=== PATIENT | male | born 1995 | race American Indian/Alaskan Native ===

== ENCOUNTER 2016-11-10 12:29 | Emergency (ER) | payer SELFPAY ==
[2016-11-10 12:37] VITALS: BP 112/64
[2016-11-10 15:04] LABS: Bilirubin,Urine NEG (Negative); Blood,Urine NEG (Negative); Ketones,Urine NEG (Negative); Leukocyte Esterase,Urine NEG (Negative); Mucus,Urine 2+ /HPF; Nitrite,Urine NEG (Negative); Protein,Urine <15 mg/dL mg/dL (Negative); Urobilinogen,Urine < 2.0 mg/dL (<2.0)
--- NOTE | 2016-11-10 15:29 | Emergency Department Report ---
ED Male HPI - General Chief complaint: Urogenital-Male Stated complaint: SWOLLEN LEFT SIDE OF GROIN AREA Time Seen by Provider: 11/10/16 13:50 Source: patient Mode of arrival: Ambulatory Limitations: No Limitations - History of Present Illness Initial comments: PT states that he is only sexually active with his girlfriend and they are around each other 24/02, so he does not think she is cheating. PT and pt's girlfriend deny hx of STD. PT states that last week, they were having sex, and his penis jammed into his partner's thigh. PT states the next day he had some pain to the tip of his penis and the L side of his groin. PT associated this with trauma. PT states he recently shaved and he noticed some razor bumps. PT states he squeezed one but could not drain it. PT states he has had bumps to his penis for a few days. MD Complaint: genital injury -: Sudden, days(s) Location: penis Severity scale (0 -10): 5 Consistency: constant (groin pain ), intermittent (dysuria ) Improves with: none Worsens with: urination (after drinking juice) trauma rash, dysuria (after drinking juice. No dysuria after drinking water ). denies : discharge, swelling, mass - Related Data Sexually active: Yes Allergies Allergy/AdvReac Type Severity Reaction Status Date / Time No Known Allergies Allergy Verified 11/10/16 12:38 ED Review of Systems ROS: Stated complaint: SWOLLEN LEFT SIDE OF GROIN AREA Other details as noted in HPI Comment: All other systems reviewed and negative Gastrointestinal: denies: abdominal pain, nausea, vomiting Genitourinary: as per HPI, dysuria. denies: discharge, testicular pain, testicular mass Skin: rash ED Past Medical Hx - Past Medical History Previous Medical History?: No - Surgical History Past Surgical History?: Yes Additional Surgical History: tonsils - Social History Smoking Status: Current Every Day Smoker Substance Use Type: Alcohol ED Physical Exam - General Limitations: No Limitations General appearance: alert, in no apparent distress - Head Head exam: Present: atraumatic, normocephalic - Eye Eye exam: Present: normal appearance. Absent: conjunctival injection - ENT ENT exam: Present: normal exam - Neck Neck exam: Present: normal inspection. Absent: tenderness, full ROM, lymphadenopathy - Respiratory Respiratory exam: Present: normal lung sounds bilaterally. Absent: respiratory distress - Cardiovascular Cardiovascular Exam: Present: normal rhythm, bradycardia - GI/Abdominal GI/Abdominal exam: Present: soft. Absent: tenderness - exam: Present: circumcision. Absent: urethral discharge, scrotal swelling External exam: Present: lesions. Absent: swelling, lacerations, ecchymosis, bleeding - Expanded Exam Expanded Male exam: Present: lesions, other (PT with folliculitis to groin. PT also has scattered areas of erythema to penis. No vesicles seen. PT has 2 lesions on the L side of the shaft that appear like ulcers. ) exam: Inguinal Lymphadenopathy: Left - Extremities Exam Extremities exam: Present: normal inspection, full ROM - Back Exam Back exam: Present: normal inspection, full ROM, tenderness, CVA tenderness (R) , CVA tenderness (L) - Neurological Exam Neurological exam: Present: alert, oriented X3, CN II-XII intact - Psychiatric Psychiatric exam: Present: normal affect, normal mood - Skin Skin exam: Present: warm, dry, rash ED Course Vital Signs 11/10/16 12:34 Temperature 97.7 F Pulse Rate 52 L Respiratory 16 Rate Blood Pressure 112/64 O2 Sat by Pulse 100 Oximetry - Reevaluation(s) Reevaluation #1: 11/10/16 15:34 PT was aware that exam was concerning for HSV outbreak. PT also aware that he has folliculitis. PT aware that he should not shave at this time. urine sent for GC/CT testing and HSV culture. PT aware that the results take days. PT aware that he would be prescribed antibiotics and antivirals empirically. I was informed by nursing staff that the pt walked out of his hospital room. Pt did not return. PT eloped. - Pulse Oximetry Interpretation Digit-Finger Initial Pulse Oximetry Readin Actions Taken: none ED Medical Decision Making - Differential Diagnosis std, hsv, Critical Care Time: No Critical care attestation.: If time is entered above; I have spent that time in minutes in the direct care of this critically ill patient, excluding procedure time. ED Disposition Clinical Impression: Folliculitis, Penile lesion Disposition: ELOPED Is pt being admited?: No Does the pt Need Aspirin: No Condition: Stable Referrals: PRIMARY CARE, [Primary Care Provider] - 3-5 Days
== END 2016-11-10 15:59 | disposition left against medical advice (07) ==
LOC: ED 12:29
DX: L73.9 Follicular disorder, unspecified (principal); L98.9 Disorder of the skin and subcutaneous tissue, unspecified; F17.200 Nicotine dependence, unspecified, uncomplicated
CPT/HCPCS: 36415; 81001; 87255; 87591; 99282